=== PATIENT | male | born 1960 | race Two or more races ===

== ENCOUNTER 2021-05-21 09:02 | Emergency (ER) | payer OTHER ==
[~2021-05-21] VITALS: Ht 180.3 cm; Wt 953.9 kg
[~2021-05-21 09:02] MED LIST: ERYTHROMYCIN500 MG PO; TRIPLE ANTIBIOT15 GM TP
== END 2021-05-21 11:32 | disposition home or self-care (01) ==
LOC: ER 09:02
DX: M54.59 Other low back pain (principal); M25.552 Pain in left hip

== ENCOUNTER 2022-01-22 09:58 | Emergency (ER) | payer OTHER ==
[~2022-01-22] VITALS: Ht 180.3 cm; Wt 99.8 kg
[2022-01-22] MEDS ORDERED: TYLENOL325 MG (10:04)
== END 2022-01-22 14:48 | disposition home or self-care (01) ==
LOC: ER 09:58
DX: N40.1 Benign prostatic hyperplasia with lower urinary tract symptoms (principal); R33.8 Other retention of urine; N39.0 Urinary tract infection, site not specified; N20.9 Urinary calculus, unspecified

== ENCOUNTER 2022-05-19 08:50 | Outpatient (CLI) | payer OTHER ==
[~2022-05-19 08:50] MED LIST changes: +TYLENOL325 MG
== END 2022-05-19 09:04 | disposition home or self-care (01) ==
LOC: SONOGRAMA 08:50
DX: M79.674 Pain in right toe(s) (principal)

== ENCOUNTER 2023-03-21 08:03 | Outpatient (CLI) | payer OTHER ==
[2023-03-21 08:54] LABS: HEMATOCRIT 43.3 % (39.0-48.0); HEMOGLOBIN 14.6 g/dL (13-16.00); MEAN CELL VOLUME 87.8 fL (80.0-100.00); MEAN CORPUSCULAR HEMOGLOBIN 29.7 pg (27.00-32.0); MEAN CORPUSCULAR HGB CONC 33.8 g/dl (32.0-36.0); PLATELET COUNT 140 K/uL (150-450); RED BLOOD COUNT 4.93 M/uL (4.00-6.00); RED CELL DISTRIBUTION WIDTH 14.5 % (11.5-14.5)
[2023-03-21 09:14] LABS: INR 1.05; PARTIAL THROMBOPLASTIN TIME 30.2 SECONDS (22.0-34.0)
[2023-03-21 09:20] LABS: BILIRUBIN TOTAL 0.56 mg/dL (0.3-1.2); CALCIUM 9.6 mg/dL (8.5-10.1); CREATININE SERUM 0.81 mg/dL (0.70-1.30); GFR 97.2; GLOBULINA 3.4 G/DL (2.4-3.5); POTASSIUM 4.44 mEq/L (3.5-5.1); TOTAL PROTEIN 7.4 gm/dL (6.4-8.2)
[2023-03-21 09:39] LABS: URINE APPEARANCE Clear; URINE BILIRRUBIN Negative (NEGATIVE); URINE BLOOD Negative; URINE COLOR Yellow; URINE GLUCOSE Negative (NEGATIVE); URINE LEUKOCYTE Negative; URINE NITRATE Negative; URINE PROTEIN Negative (NEGATIVE); URINE UROBILINOGEN 0.2 E.U./dl
[2023-03-21 09:43] LABS: URINE BACTERIA 6.3 uL (0.0-1933); URINE EPITHELIAL CELLS 2.3 uL (0.0-38.8)
[2023-03-21 09:50] LABS: URINE RBC 1.2 uL (0.0-20.8)
== END 2023-03-21 08:12 | disposition home or self-care (01) ==
LOC: LAB 08:03
PROVIDERS: ATTEND Orthopaedic Surgery
DX: D64.9 Anemia, unspecified (principal); I10 Essential (primary) hypertension; D68.9 Coagulation defect, unspecified; N39.0 Urinary tract infection, site not specified; E55.9 Vitamin D deficiency, unspecified; M54.16 Radiculopathy, lumbar region; M48.061 Spinal stenosis, lumbar region without neurogenic claudication

== ENCOUNTER 2023-03-21 08:59 | Outpatient (CLI) | payer OTHER | END 2023-03-21 11:29 | disposition home or self-care (01) | LOC: RAD 08:59 | PROVIDERS: ATTEND Orthopaedic Surgery | DX: M54.16 Radiculopathy, lumbar region (principal); M48.061 Spinal stenosis, lumbar region without neurogenic claudication ==

== ENCOUNTER → 2023-03-21 | Outpatient (CLI) | payer OTHER | END | disposition home or self-care (01) | LOC: NUCLEAR 11:06 | PROVIDERS: ATTEND Orthopaedic Surgery | DX: M85.89 Other specified disorders of bone density and structure, multiple sites (principal); M54.16 Radiculopathy, lumbar region; M48.061 Spinal stenosis, lumbar region without neurogenic claudication ==

== ENCOUNTER 2023-10-30 12:51 | Emergency (ER) | payer OTHER ==
[~2023-10-30] VITALS: Ht 180.3 cm; Wt 87.1 kg
[~2023-10-30 12:51] MED LIST changes: +MOTRIN IB200 M1; +RELAFEN DS1000 MG
[2023-10-30] MEDS ORDERED: NEURONTIN300 MG PO (13:27)
[2023-10-30] MEDS ORDERED: MEPERIDINE HCL/PF 50 MG/ML VIAL IM STA (15:12)
[2023-10-30] MEDS ORDERED: DEXAMETHASONE SODIUM PHOSPHATE 4 MG/ML VIAL IV STA (15:13)
== END 2023-10-30 16:53 | disposition home or self-care (01) ==
LOC: ER
DX: R20.0 Anesthesia of skin (principal)
CPT/HCPCS: 96365; 96372; 99282; J1100; J3490